=== PATIENT | male | born 1945 | race Caucasian/White ===

== ENCOUNTER → 2018-04-19 10:29 | Outpatient (CLI) | payer MEDICARE, OTHER, SELFPAY ==
[2018-04-19 11:40] LABS: PSA,Total- Diagnostic 0.03 ng/mL (0.0-4.0)
== END ==
PROVIDERS: Family Provider Family Medicine; PCP Family Medicine; Referring Provider Urology; Visit Provider Urology
DX: C61 Malignant neoplasm of prostate (principal)
CPT/HCPCS: 36415; 84153

== ENCOUNTER → 2019-04-25 | Outpatient (CLI) | payer MEDICARE, OTHER, SELFPAY ==
[2019-04-25 16:38] LABS: PSA,Total- Diagnostic < 0.01 ng/mL (0.0-4.0)
== END | disposition home or self-care (01) ==
PROVIDERS: Family Provider Family Medicine; PCP Family Medicine; Referring Provider Urology; Visit Provider Urology
DX: C61 Malignant neoplasm of prostate (principal)
CPT/HCPCS: 36415; 84153

== ENCOUNTER → 2020-06-05 13:48 | Outpatient (CLI) | payer MEDICARE, OTHER, SELFPAY ==
[2020-06-05 15:01] LABS: PSA,Total- Diagnostic < 0.01 ng/mL (0.0-4.0)
== END ==
PROVIDERS: PCP Family Medicine; Visit Provider Urology
DX: C61 Malignant neoplasm of prostate (principal)
CPT/HCPCS: 36415; 84153

== ENCOUNTER 2021-06-25 13:49 | Outpatient (CLI) | payer MEDICARE, OTHER, SELFPAY ==
[2021-06-25 15:03] LABS: PSA,Total - Annual Screen < 0.01 ng/mL (0.00-4.00)
== END 2021-06-25 23:59 | disposition short-term general hospital (02) ==
LOC: LAB 13:53
PROVIDERS: PCP Family Medicine; Referring Provider Urology; Visit Provider Urology
DX: Z12.5 Encounter for screening for malignant neoplasm of prostate (principal)
CPT/HCPCS: 36415; 84153; G0103